=== PATIENT | male | born 2000 | race Caucasian/White ===

== ENCOUNTER → 2023-08-06 | Day surgery (SDC) | payer OTHER ==
[2023-08-04 12:32] VITALS: BMI 21.6
[~2023-08-06] MED LIST: Acetaminophen 500 MG TAB ONE; EPINEPHrine 1 MG/ML VIAL ONE; Lidocaine 1% (PF) 30 ML VIAL ONE; Lidocaine 2% PF 100 mg/5 ml Syringe ONE; Midazolam HCl 2 mg/2 ml Vial ONE; Ondansetron PF 4 MG/2 ML Vial ONE; Oxymetazoline HCl 0.05% (30 ML BOT) ONE; PROPOFOL 20 ML ONE; ePHEDrine Sulfate 50 MG/10 ML VIAL ONE; fentaNYL PF 100 MCG/2 ML SYRINGE ONE
== END ==
LOC: SDC 09:42
PROVIDERS: ATTEND Specialist
PROC: 09BM8ZZ Excision of Nasal Septum, Via Natural or Artificial Opening Endoscopic (ICD-10-PCS; principal; 2023-08-06)
PROC: 09TL8ZZ Resection of Nasal Turbinate, Via Natural or Artificial Opening Endoscopic (ICD-10-PCS; principal; 2023-08-06)
DX: J34.2 Deviated nasal septum (principal); J34.3 Hypertrophy of nasal turbinates; Z91.018 Allergy to other foods
CPT/HCPCS: J0171; J2001; J2250; J2405; J2704